=== PATIENT | female | born 1965 | race Caucasian/White ===

== ENCOUNTER 2017-10-14 18:14 | Emergency (ER) | payer OTHER ==
[~2017-10-14] VITALS: Ht 157.5 cm; Wt 97.9 kg
[2017-10-14 19:29] LABS: HEMATOCRIT 35.2 % (36.0-46.0); HEMOGLOBIN 11.8 G/DL (11.9-15.5); MCH 31.5 PG (29.0-34.0); MCHC 33.5 G/DL (30.0-36.0); MCV 93.9 FL (83-99); PLATELET COUNT 238 K/uL (156-360); RBC DIS.WIDTH-CV 13.4 % (11.8-14.6); RBC DIS.WIDTH-SD 45.5 % (39-53); RED BLOOD COUNT 3.75 M/uL (3.80-5.20); WHITE BLOOD COUNT 8.6 K/uL (4.1-10.2)
[2017-10-14 19:37] LABS: CHLORIDE 109 mEq/L (99-109); POTASSIUM 3.7 mEq/L (3.7-5.4); SODIUM 144 mEq/L (136-147)
[2017-10-14 19:38] LABS: GLUCOSE 116 mg/dL (70-99)
[2017-10-14 19:42] LABS: CREATININE 0.8 mg/dL (0.6-1.3)
[2017-10-14 19:43] LABS: UREA NITROGEN (BUN) 17 mg/dL (9-23)
[2017-10-14 19:48] LABS: GFR ESTIMATE (CALCULATED) > 59 mL/min/
[2017-10-14] MEDS ORDERED: LEVAQUIN750 MG PO (22:09)
[2017-10-14] MEDS ORDERED: PROVENTIL,2.5 MG/3 M IH (22:09)
[2017-10-14] MEDS ORDERED: MEDROL DOSEPAK4 MG PO (22:10)
[2017-10-14 22:35] VITALS: BP 123/49
== END 2017-10-14 22:36 | disposition home or self-care (01) ==
LOC: EME 18:14
DX: J18.9 Pneumonia, unspecified organism (principal); J98.01 Acute bronchospasm; J45.909 Unspecified asthma, uncomplicated; Z91.040 Latex allergy status
CPT/HCPCS: 71046; 80048; 85027; 94640; 99281; 99283